=== PATIENT | female | born 1950 | race Caucasian/White ===

== ENCOUNTER → 2016-05-13 | Outpatient (CLI) | payer MEDICARE, BC | END | disposition home or self-care (01) | LOC: RESP 12:47 | PROVIDERS: ATTEND Orthopaedic Surgery | DX: Z01.818 Encounter for other preprocedural examination (principal) ==

== ENCOUNTER → 2017-01-07 | Outpatient (CLI) | payer MEDICARE, BC | END | disposition home or self-care (01) | LOC: GMAB 15:17 | PROVIDERS: ATTEND Family Medicine | DX: R10.13 Epigastric pain (principal) ==

== ENCOUNTER → 2017-01-13 | Outpatient (CLI) | payer MEDICARE, BC ==
--- NOTE | 2017-01-13 20:22 | CT ---
EXAM DESCRIPTION: Abdomen/Pelvis w/wo Contrast: CT. CLINICAL HISTORY: EPIGASTRIC PAIN COMPARISON: None. TECHNIQUE: Spiral-axial scans at 5.0 mm intervals through the abdomen and pelvis before and after standard dose nonionic IV contrast. Coronal and sagittal 2.0 mm reconstructions. Delayed 5 mm axial scans, liver through the pubic symphysis. No adverse reactions. Total Exam DLP 1396.89 mGy - cm. This exam was performed according to our departmental CT dose-optimization program which includes automated exposure control, adjustment of the mA and/or kV according to patient size and/or use of iterative reconstruction technique; to reduce radiation dose to as low as reasonably achievable (ALARA). FINDINGS: Lung bases and pleura: Negative. Liver, Stomach, Spleen, Adrenal Glands: Unremarkable. Pancreas, Gallbladder, Ducts: Gallbladder is visualized. No masses are negative. Kidneys and Ureters: Unremarkable. Mesentery: Negative. Aorta: Minimal atherosclerotic calcification at lateral and posterior aspect. Small Bowel: Gas and fluid within the lumen but no distention. Terminal Ileum/Cecum: Cecum distended by fecal material with mass effect on the superior urinary bladder. Normal caliber of the terminal ileum and appendix is not seen. Colon: Proximal ascending colon distended by fecal material. Small diverticula in the sigmoid colon but no evidence of complications. Pelvic Organs: Vaginal cuff is unremarkable. No radiodense stones in the urinary bladder and no wall thickening. No fluid in the cul-de-sac. Spine and Bony Pelvis: Spondylosis L5-S1 with mild canal narrowing and significant bilateral foraminal narrowing. Spondylosis at L3-4 and L2-3. No bone destruction. Abdominal Wall/Back Soft Tissues: Unremarkable. IMPRESSION: 1. Fecal material is distending the cecum and proximal ascending colon but no small bowel or colon obstruction. No free air. No free fluid in the abdomen or pelvis. No inflammatory changes in the peritoneum or retroperitoneum. Sigmoid diverticulosis but no complications. 2. Spondylosis L5-S1 with mild canal narrowing and bilateral significant foraminal narrowing. Mild spondylosis at L3-4 and L2-3. Electronically signed by: Kiko Gardiner MD 01/13/2017 8:21 PM [employer] Workstation: [employer]
== END | disposition home or self-care (01) ==
LOC: CT 10:36
PROVIDERS: ATTEND Family Medicine
DX: R10.13 Epigastric pain (principal)

== ENCOUNTER → 2018-01-20 | Outpatient (CLI) | payer MEDICARE, BC | LOC: GMAE 15:45 | PROVIDERS: ATTEND Family Medicine | DX: Z79.899 Other long term (current) drug therapy (principal) ==

== ENCOUNTER → 2019-09-21 | Outpatient (CLI) | payer MEDICARE, BC | LOC: GMAE 11:32 | PROVIDERS: ATTEND Family Medicine | DX: R10.13 Epigastric pain (principal); E78.2 Mixed hyperlipidemia; Z79.899 Other long term (current) drug therapy ==

== ENCOUNTER → 2019-09-27 | Outpatient (CLI) | payer MEDICARE, BC ==
--- NOTE | 2019-09-27 15:09 | US ---
EXAM DESCRIPTION: Gall Bladder: ULTRASOUND. CLINICAL HISTORY: NAUSEA COMPARISON: CT scan abdomen and pelvis January 2017. TECHNIQUE: Transabdominal scanning: Baldwin-scale and Doppler modes. FINDINGS: Gallbladder: normal size, shape, echogenicity; no intraluminal stones or sludge. No fluid around the gallbladder. No wall thickening. 2.2 mm. Non-tender with transducer pressure. Common bile duct: caliber 4.0 mm within normal limits. Liver: Increased echogenicity; contour liver capsule smooth where seen. No fluid around the liver. Intrahepatic biliary ducts normal caliber. Doppler hepatopedal flow portal vein.. 8.2 mm caliber at the anita hepatis. Long axis right lobe 14.1 cm. Pancreas: normal size Normal echogenicity. Duct not seen. Aorta: Proximal caliber 1.4 cm. Right kidney: long axis is 8.4 cm.; volume 86 mm. Normal cortical thickness and echogenicity. No echogenic stones; no hydronephrosis.. IMPRESSION: 1. Steatosis of the liver but not enlarged. Physiologic vascularity and ducts. Smooth capsule with no ascites. Normal ultrasound of the pancreas. 2. Gallbladder and common bile duct are unremarkable. 3. Negative findings in the right kidney. Normal caliber of the proximal abdominal aorta and IVC. Electronically signed by: Kiko Gardiner MD 09/27/2019 3:07 PM CDT
== END ==
LOC: US 08:44
PROVIDERS: ATTEND Family Medicine
DX: R11.0 Nausea (principal); K76.0 Fatty (change of) liver, not elsewhere classified

== ENCOUNTER → 2020-02-28 | Outpatient (CLI) | payer MEDICARE, BC | LOC: GMALS 16:40 | PROVIDERS: ATTEND Nurse Practitioner Acute Care | DX: R30.0 Dysuria (principal) ==